=== PATIENT | female | born 2000 | race Hispanic/Latino ===

== ENCOUNTER 2025-01-31 06:26 | Day surgery (SDC) | payer MEDICAID ==
[2025-01-30 12:16] LABS: IMMATURE GRANULOCYTE ABSOLUTE 0.02 K/uL (0-1); NUCLEATED RED BLOOD CELLS 0.0 % (0.0-0.19); PLATELET COUNT (AUTO) 140 K/uL (130-400); RED BLOOD CELL COUNT(AUTO) 4.82 MIL/uL (4.00-5.50); RED CELL DISTRIBUTION WIDTH 15.5 % (11.0-15.5); WHITE BLOOD COUNT (AUTO) 6.5 K/uL (4.8-10.8)
[2025-01-30 12:27] VITALS: BP 115/68; PULSE 73; RESP 13; TEMP 98.1
--- NOTE | 2025-01-30 12:32 | EKG ---
[facility] Test Date: 2025-01-30 Test Time: 12:00:52 Pat Name: BA CHANDLER Department: [facility] Room: Gender: F Director Of Assessment: [id number] : 2000 Requested By: OLGA DARLING Order Number: [id number] Reading MD: Risa Nuñez Measurements Intervals [place] Rate: 65 P: 30 ND: 127 QRS: 46 QRSD: 81 T: 58 QT: 395 QTc: 411 Interpretive Statements Sinus rhythm No previous ECG available for comparison Electronically Signed On 01-30-2025 14:05:14 CDT by Risa Nuñez Please click the below link to view image of tracing.
[2025-01-30 12:48] LABS: CREATININE 0.7 mg/dL (0.5-1.0); GLOMERULAR FILTR. RATE CALC 123.0 mL/min (>90); GLUCOSE,RANDOM 93.0 mg/dL (70-105); SODIUM SERUM 135.0 mmol/L (136-145); UREA NITROGEN, BLOOD 12.0 mg/dL (7-18)
[2025-01-30 13:02] LABS: INR 1.03 (0.85-1.15)
[2025-01-31] VITALS (16 sets, daily range): BP systolic 98–128; BP diastolic 57–83; PULSE 78–117; RESP 12–21; TEMP 97.2–97.9
[~2025-01-31] VITALS: Ht 160 cm; Wt 55.9 kg
[~2025-01-31 06:26] MED LIST: NORE1PAT10 TD
[2025-01-31] MEDS: LACTATED RINGERS 1000ML 1,000 ML IV ONE (06:53)
[2025-01-31] MEDS ORDERED: GLYCOPYRROLATE 0.2 MG/ML 5 ML VIAL ONE (07:14)
[2025-01-31] MEDS ORDERED: LIDOCAINE PF 100MG/5ML (2%) SYRINGE 5ML ONE (07:14)
[2025-01-31] MEDS ORDERED: NEOSTIGMINE METHYLSULFATE 1MG/ML IV ONE (07:14)
[2025-01-31] MEDS ORDERED: SUCCINYLCHOLINE CHLORIDE 20 MG/ML 10 ML VIAL ONE (07:15)
[2025-01-31] MEDS ORDERED: MIDAZOLAM HCL 1 MG/ML 2ML VIAL ONE (07:15)
[2025-01-31] MEDS ORDERED: SUGAMMADEX SODIUM 200 MG/2 ML VIAL IV ONE (07:29)
[2025-01-31] MEDS: INDOCYANINE GREEN 25 MG VIAL IJ ONE (08:00)
--- NOTE | 2025-01-31 10:09 | OP ---
Operative Note: DATE OF PROCEDURE: 01/31/25 SURGEON: OLGA DARLING MD SQUEEGEER AND FORMER: [Please review operative record] ANESTHESIA: [General and local] ANESTHESIOLOGIST/CHIEF DIVERSITY OFFICER: [Please review operative record] PREOPERATIVE DIAGNOSIS: [Symptomatic cholelithiasis] POSTOPERATIVE DIAGNOSIS: [Same] SYNOPSIS: [Large gallbladder, mildly inflamed] PROCEDURE: [Robotic assisted laparoscopic cholecystectomy. ICG green cholangiography] ESTIMATED BLOOD LOSS: [15 cc] INDICATIONS: [Patient is a 24-year-old female with chronic right upper quadrant postprandial pain. Found to have cholelithiasis also concerns for choledocholithiasis versus choledochal cyst. Recommendation for cholecystectomy was given. Risks, benefits, alternatives were discussed patient. All questions were answered. Patient agreed to proceed with surgical procedure.] DESCRIPTION OF PROCEDURE: [After appropriate consent was obtained, the patient was brought into the operating room and placed in supine position on the operating table. SCDs were placed, preop antibiotics were given. Patient underwent induction of general anesthesia, endotracheal intubation. Patient was then prepped and draped in usual sterile fashion. Time-out was performed. Through a left subcostal incision, Veress needle was inserted into the peritoneal cavity. Insufflation was allowed to 12 mmHg. Through a supraumbilical incision, 8 mm trocar and laparoscope were inserted into the peritoneal cavity using [employer]. Veress needle and this vicinity were examined with no signs of injury. Rest of my trocars were all placed under direct visualization. Patient was positioned on a reverse Trendelenburg at 20. Abdominal pressure was dropped to 10 mmHg. The Paulette robot was docked. Upon examination of the gallbladder, it appeared mildly inflamed, large almost like he was folding on itself. A few omental adhesions were taken down using hook electrocautery. The liver and gallbladder were retracted cephalad exposing area for Calot's triangle dissection. Using hook electrocautery, dissection was accomplished. Very short cystic duct was encounter unable to perform intraoperative cholangiogram however IC green cholangiography showed proper identification of the cystic duct, visualization of hepatic and common bile duct. Cystic artery was also isolated. Cystic artery was clipped once and cauterized and sharply divided. Cystic duct was clipped 3 times with two of these clips staying behind after sharp division. Gallbladder was removed from the gallbladder fossa using bipolar energy. Hemostasis was achieved with bipolar energy as well. Once removed from the gallbladder fossa, gallbladder was placed in an Endo-Catch bag. DaVinci robot was undocked at this time. Gallbladder was removed from the peritoneal cavity with a bag through an 8 mm trocar site. The fascia of the site was closed with 0 Vicryl suture through a suture Passer. Final inspection revealed adequate hemostasis, no concerns for leakage. Counts were correct at the end of the case. All instruments were removed. Abdomen was allowed to deflate. Skin incisions were closed with 4-0 Monocryl. Dermabond was applied over the incisions. Patient tolerated the procedure well. Was transferred to recovery in a good condition.] OLGA DARLING MD Jan 31, 2025 10:09
--- NOTE | 2025-01-31 10:11 | DS ---
Discharge Summary Hospital Course Patient is a 24-year-old female who was admitted from the outpatient setting for elective robotic assisted laparoscopic cholecystectomy due to symptomatic cholelithiasis on 01/31/2025. Patient tolerated the procedure well. No issues at this time. Patient with no major complaints, pain well controlled. Remains hemodynamically stable, afebrile. Aerating well on room air. Normal sinus rhythm. Abdomen is benign. Incisions clean dry and intact. No rebound or guarding, appropriately tender to palpation. Patient to advance diet as tolerated. No lifting more than 20 lb for a month. Postop follow up already in place, postop medications already submitted to the patient's pharmacy. Return precautions given including fevers of 101.5 or higher, worsening abdominal pain, intractable nausea or vomiting. OLGA DARLING MD Jan 31, 2025 10:11
== END 2025-01-31 11:28 | disposition home or self-care (01) ==
LOC: DAH 06:26
PROVIDERS: ATTEND Surgery
DX: K80.10 Calculus of gallbladder with chronic cholecystitis without obstruction (principal); R93.2 Abnormal findings on diagnostic imaging of liver and biliary tract; Z79.01 Long term (current) use of anticoagulants; Z79.899 Other long term (current) drug therapy
CPT/HCPCS: 80048; 84703; 85025; 85610; 85730; 86850; 86900; 86901; 36415; 93005; 47563; 88304; A6260; A4663; A4215 ×2; J7120; J3010 ×3; J1100; J0330; J0665; J3490 ×2; J2003; J2250; J2704; J2405 ×3; J2710; J0690; A4930 ×2; A4222; A4221; A4216; A4223 ×2; A4600; S2900